=== PATIENT | male | born 2000 | race Caucasian/White ===

== ENCOUNTER → 2019-02-16 | Outpatient (CLI) | payer OTHER, BC ==
--- NOTE | 2019-02-17 10:11 | ECHOF ---
Referral Reason:R00.2 palpitations MEASUREMENTS -------- HEIGHT: 180.3 cm WEIGHT: 64.4 kg BP: 113/72 RVIDd: 2.6 cm (< 3.3) IVSd: 0.8 cm (0.6 - 1.1) LVIDd: 4.1 cm (3.9 - 5.3) LVPWd: 1.0 cm (0.6 - 1.1) IVSs: 1.2 cm LVIDs: 2.7 cm LVPWs: 1.3 cm LAESV Index (A-L): 9.34 ml/m Ao Diam: 2.7 cm (2.0 - 3.7) AV Cusp: 1.9 cm (1.5 - 2.6) LA Diam: 2.5 cm (2.7 - 3.8) MV EXCURSION: 13.796 mm (> 18.000) MV EF SLOPE: 86 mm/s (70 - 150) EPSS: 0.9 cm MV E Leland: 0.82 m/s MV DecT: 264 ms MV A Leland: 0.47 m/s MV E/A Ratio: 1.76 RAP: 5.00 mmHg RVSP: 25.35 mmHg FINDINGS -------- Sinus rhythm. This was a technically good study. The left ventricular size is normal. Left ventricular wall thickness is normal. There is normal g lobal left ventricular contractility. Overall left ventricular systolic function is normal with, an EF between 65 - 70 %. The diastolic filling pattern is normal for the age of the patient 5.52. The right ventricle is normal in size. Normal LA size by volume 22+/-6 ml/m2. The right atrial size is normal. Interatrial and interventricular septum intact. The aortic valve is trileaflet and appears structurally normal. There is no evidence of aortic regu rgitation. There is no evidence of aortic stenosis. No mitral regurgitation. Mild tricuspid regurgitation present. There is no evidence of pulmonary hypertension. The right v entricular systolic pressure, as measured by Doppler, is 25.35mmHg. The pulmonic valve is normal. The aortic root size is normal. Normal inferior vena cava with normal inspiratory collapse consistent with estimated right atrial pre ssure of 5 mmHg. There is no pericardial effusion. CONCLUSIONS -------- 1. Sinus rhythm. 2. This was a technically good study. 3. The left ventricular size is normal. 4. Left ventricular wall thickness is normal. 5. There is normal global left ventricular contractility. 6. Overall left ventricular systolic function is normal with, an EF between 65 - 70 %. 7. The diastolic filling pattern is normal for the age of the patient 5.52 8. The right ventricle is normal in size. 9. Normal LA size by volume 22+/-6 ml/m2. 10. The right atrial size is normal. 11. Interatrial and interventricular septum intact. 12. The aortic valve is trileaflet and appears structurally normal. 13. There is no evidence of aortic regurgitation. 14. There is no evidence of aortic stenosis. 15. No mitral regurgitation. 16. Mild tricuspid regurgitation present. 17. There is no evidence of pulmonary hypertension. 18. The right ventricular systolic pressure, as measured by Doppler, is 25.35mmHg. 19. The pulmonic valve is normal. 20. The aortic root size is normal. 21. Normal inferior vena cava with normal inspiratory collapse consistent with estimated right atrial pressure of 5 mmHg. 22. There is no pericardial effusion. COUNT TEAM CLERK: Janie Curry RDCS
== END | disposition home or self-care (01) ==
LOC: RADECHMAIN 14:44
PROVIDERS: ATTEND Family Medicine
DX: I07.1 Rheumatic tricuspid insufficiency (principal)
CPT/HCPCS: 93306

== ENCOUNTER 2019-08-28 15:26 | Emergency (ER) | payer OTHER, BC ==
[2019-08-28 15:38] VITALS: BP 117/78; PULSE 93; TEMP 97.8
--- NOTE | 2019-08-28 16:03 | ED ---
URI HPI - General Chief Complaint: Upper Respiratory Infection Stated Complaint: fever, congestion Time Seen by Provider: 08/28/19 15:39 Source: patient Mode of arrival: ambulatory Limitations: no limitations - History of Present Illness Initial Comments: Patient is a 19-year-old male presenting to emergency Department with complaints of a cough 1 week. He states his cough has been increasing over this past week. He is having mild nausea as well as hot flashes and chills. He denies any vomiting, diarrhea, shortness of breath, chest pain. He does admit to history of mild asthma. He's been taking DayQuil without relief of symptoms. He has no other complaints at this time. Upon arrival to the ER, vital signs are stable. - Related Data Previous Rx's Medication Instructions Recorded Albuterol Inhaler [Ventolin Hfa 1 - 2 puff INHALATION RT-Q6H PRN 08/28/19 Inhaler] #1 inhaler Azithromycin [Zithromax Z-pack] 0 mg PO DIRECTED #1 pack 08/28/19 methylPREDNISolone [Medrol Dose 4 mg PO DIRECTED #1 pack 08/28/19 Pack] Allergies Allergy/AdvReac Type Severity Reaction Status Date / Time No Known Allergies Allergy Verified 08/28/19 15:38 Review of Systems ROS Statement: Those systems with pertinent positive or pertinent negative responses have been documented in the HPI. ROS Other: All systems not noted in ROS Statement are negative. Past Medical History Past Medical History: Asthma History of Any Multi-Drug Resistant Organisms: None Reported Past Surgical History: Orthopedic Surgery Past Psychological History: Anxiety Smoking Status: Current every day smoker Past Alcohol Use History: Occasional Past Drug Use History: None Reported General Exam - General Exam Comments Initial Comments: GENERAL: Well-appearing, well-nourished and in no acute distress. HEAD: Atraumatic, normocephalic. EYES: Pupils equal round and reactive to light, extraocular movements intact, sclera anicteric, conjunctiva are normal. ENT: TMs normal, nares patent, oropharynx clear without exudates. Moist mucous membranes. NECK: Normal range of motion, supple without lymphadenopathy or JVD. LUNGS: Breath sounds clear to auscultation bilaterally and equal. No wheezes rales or rhonchi. HEART: Regular rate and rhythm without murmurs, rubs or gallops. ABDOMEN: Soft, nontender, normoactive bowel sounds. No guarding, no rebound. No masses appreciated. : Deferred EXTREMITIES: Normal range of motion, no pitting or edema. No clubbing or cyanosis. NEUROLOGICAL: Normal speech, normal gait. PSYCH: Normal mood, normal affect. SKIN: Warm, Dry, normal turgor, no rashes or lesions noted. Limitations: no limitations Course Vital Signs 08/28/19 15:35 Temperature 97.8 F Pulse Rate 93 Respiratory 18 Rate Blood Pressure 117/78 O2 Sat by Pulse 99 Oximetry Medical Decision Making - Medical Decision Making Patient is a 19-year-old male presenting with a cough 5 days. Patient has history of mild asthma. Vital signs are stable upon arrival. Chest x-ray shows no acute abnormalities. Patient has influenza negative. I discussed these findings with the patient. Given patient's length of symptoms and intermittent fevers, patient will be started on azithromycin as well as steroid Dosepak for his symptoms. He is also requesting a refill of his inhaler. Patient is stable for discharge at this time. Return parameters were discussed with the patient and he verbalized understanding. - Lab Data Lab Results 08/28/19 Range/Units 15:55 Influenza Type A RNA Not Detected (Not Detectd) Influenza Type B (PCR) Not Detected (Not Detectd) Disposition Clinical Impression: Acute upper respiratory infection Disposition: HOME SELF-CARE Condition: Stable Instructions (If sedation given, give patient instructions): Upper Respiratory Infection (ED) Additional Instructions: Please return to the Emergency Department if symptoms worsen or any other concerns. Take antibiotics and steroids as prescribed. Use inhaler as needed for shortness of breath or cough. Prescriptions: methylPREDNISolone [Medrol Dose Pack] 4 mg PO DIRECTED #1 pack Albuterol Inhaler [Ventolin Hfa Inhaler] 1 - 2 puff INHALATION RT-Q6H PRN #1 inhaler PRN Reason: Shortness Of Breath Azithromycin [Zithromax Z-pack] 0 mg PO DIRECTED #1 pack Is patient prescribed a controlled substance at d/c from ED?: No Referrals: Red Martin MD [Primary Care Provider] - 1-2 days
--- NOTE | 2019-08-28 16:19 | XR ---
EXAMINATION TYPE: XR chest 2V DATE OF EXAM: 08/28/2019 COMPARISON: 04/29/05 HISTORY: Chest pain TECHNIQUE: Frontal and lateral views of the chest are obtained. FINDINGS: There is no focal air space opacity. No evidence for pneumothorax. No pleural effusion. The cardiac silhouette size is within normal limits. The osseous structures are grossly intact. IMPRESSION: 1. No acute cardiopulmonary process.
[2019-08-28 16:34] VITALS: RESP 20
== END 2019-08-28 16:34 | disposition home or self-care (01) ==
LOC: EC 15:26
DX: J06.9 Acute upper respiratory infection, unspecified (principal); J45.909 Unspecified asthma, uncomplicated; F17.200 Nicotine dependence, unspecified, uncomplicated
CPT/HCPCS: 71046; 87502; 99283